=== PATIENT | female | born 1960 | race Caucasian/White ===

== ENCOUNTER 2017-12-30 08:37 | Emergency (ER) | payer MEDICARE, OTHER ==
[~2017-12-30] VITALS: Ht 167.6 cm; Wt 75.0 kg
[~2017-12-30 08:37] MED LIST: ASPI-516 CHEW; ATEN50TA PO; BUSP10TA PO; EPIP0.3I IM; FLUTI110I INH; LOVA20TA PO; MONT10TA4 PO; PANT40TA3 PO; VENTAER INH
[2017-12-30 08:38] VITALS: BP 154/73; PULSE 67; RESP 14; TEMP 97.9; O2SAT 100
[2017-12-30] MEDS ORDERED: SODIUM CHLOR 0.9% 1000 ML INJ 1,000 ML IV SCH (09:38)
--- NOTE | 2017-12-30 09:43 | PD ---
HPI Chief Complaint: Abdominal Pain Time Seen by Provider: 08:42 Travel History International Travel<30 days: No Contact w/Intl Traveler<30days: No Traveled to known affect area: No History of Present Illness HPI The patient is a 57-year-old female who presents to the emergency department for abdominal pain. The patient complains of right lower quadrant abdominal pain that radiates into the right inguinal region for 1 week's duration. The pain is intermittent, worse with sitting, but can be present at standing. She states that movements do not appear to exacerbate the pain. She does complain of mild nausea but denies any vomiting or diarrhea. Last bowel movement was yesterday. Previous abdominal surgeries include fixation of the vagina to the posterior wall and partial hysterectomy. She denies any fever, chills, sweats, dysuria, frequency, or urgency. She does have a history of gastritis. She denies any vaginal bleeding or vaginal discharge. Symptoms are moderate. PFSH Past Medical History Narrative Medical Gastritis, fibromyalgia, hypertension, hyperlipidemia Past Surgical History Narrative Surgical Vaginal surgery, partial hysterectomy Social History Tobacco Use: No Allergies-Medications (Allergen,Severity, Reaction): Coded Allergies: Sulfa (Sulfonamide Antibiotics) (Verified Allergy, Intermediate, itching, 12/30/17) egg (Verified Allergy, Unknown, 12/30/17) had an allergy test done Reported Meds & Prescriptions Reported Meds & Active Scripts Active Aspirin 81 Mg Chew 81 Mg CHEW DAILY Ventolin Hfa 18 GM Inh (Albuterol Sulfate) 90 Mcg/Act Aer 2 Puff INH Q4-6H PRN Flovent Hfa 12 GM Inh (Fluticasone Propionate) 110 Mcg/Act Inh 2 Puff INH BID Pantoprazole (Pantoprazole Sodium) 40 Mg Tab 40 Mg PO DAILY Montelukast (Montelukast Sodium) 10 Mg Tab 10 Mg PO DAILY Lovastatin 20 Mg Tab 20 Mg PO DAILY Buspirone (Buspirone HCl) 10 Mg Tab 10 Mg PO BID Atenolol 50 Mg Tab 50 Mg PO DAILY Reported Epipen 2-Gerald Inj (Epinephrine) Unknown Strength Pfpen Unknown Dose IM ONCE PRN Review of Systems Except as stated in HPI: all other systems reviewed are Neg General / Constitutional: No: Fever Cardiovascular: No: Chest Pain or Discomfort Respiratory: No: Shortness of Breath Gastrointestinal: Positive: Nausea, Abdominal Pain, Indigestion, No: Vomiting, Diarrhea, Constipation, Loss of Appetite Genitourinary: No: Dysuria, Discharge, Vaginal Bleeding Skin: No Rash Physical Exam Narrative GENERAL: Awake, alert, pleasant 57-year-old female who appears her stated age and is in no acute respiratory distress. SKIN: Focused skin assessment warm/dry. HEAD: Atraumatic. Normocephalic. EYES: Pupils equal and round. No scleral icterus. No injection or drainage. ENT: No nasal bleeding or discharge. Mucous membranes pink and moist. NECK: Trachea midline. No JVD. CARDIOVASCULAR: Regular rate and rhythm. No murmur appreciated. RESPIRATORY: No accessory muscle use. Clear to auscultation. Breath sounds equal bilaterally. GASTROINTESTINAL: The exam was performed in the presence of a female nurse. Negative McBurney's. Negative Maharaj's. Mild tenderness of the right inguinal canal, no obvious femoral hernia. Positive right femoral pulse. No significant lymphadenopathy noted. MUSCULOSKELETAL: No obvious deformities. No clubbing. No cyanosis. No edema. NEUROLOGICAL: Awake and alert. No obvious cranial nerve deficits. Motor grossly within normal limits. Normal speech. PSYCHIATRIC: Appropriate mood and affect; insight and judgment normal. Data Data Last Documented VS Vital Signs Date Time Temp Pulse Resp B/P (MAP) Pulse Ox O2 Delivery O2 Flow Rate FiO2 12/30/17 09:51 97 Room Air 12/30/17 08:38 97.9 67 14 Orders Orders Complete Blood Count With Diff (12/30/17:19) Comprehensive Metabolic Panel (12/30/17:19) Urinalysis - C+S If Indicated (12/30/17:19) Iv Access Insert/Monitor (12/30/17:19) Oxygen Administration (12/30/17:19) Oximetry (12/30/17:19) Lipase (12/30/17:19) Ct Abd/Pel W/O Iv Contrast (12/30/17:38) Ecg Monitoring (12/30/17:38) Morphine Inj (Morphine Inj) (12/30/17 09:45) Ondansetron Inj (Zofran Inj) (12/30/17 09:45) Sodium Chlor 0.9% 1000 Ml Inj (Ns 1000 M (12/30/17 09:38) Sodium Chloride 0.9% Flush (Ns Flush) (12/30/17 09:45) Ketorolac Inj (Toradol Inj) (12/30/17 09:45) Ed Discharge Order (12/30/17 11:01) Labs Laboratory Tests Test 12/30/17 09:50 White Blood Count 6.3 TH/MM3 Red Blood Count 4.17 MIL/MM3 Hemoglobin 12.5 GM/DL Hematocrit 36.7 % Mean Corpuscular Volume 88.1 FL Mean Corpuscular Hemoglobin 29.9 PG Mean Corpuscular Hemoglobin Concent 34.0 % Red Cell Distribution Width 13.4 % Platelet Count 249 TH/MM3 Mean Platelet Volume 8.2 FL Neutrophils (%) (Auto) 71.6 % Lymphocytes (%) (Auto) 18.2 % Monocytes (%) (Auto) 7.5 % Eosinophils (%) (Auto) 2.0 % Basophils (%) (Auto) 0.7 % Neutrophils # (Auto) 4.5 TH/MM3 Lymphocytes # (Auto) 1.1 TH/MM3 Monocytes # (Auto) 0.5 TH/MM3 Eosinophils # (Auto) 0.1 TH/MM3 Basophils # (Auto) 0.0 TH/MM3 CBC Comment DIFF FINAL Differential Comment Urine Color YELLOW Urine Turbidity HAZY Urine pH 8.0 Urine Specific [place] 1.009 Urine Protein NEG mg/dL Urine Glucose (UA) NEG mg/dL Urine Ketones NEG mg/dL Urine Occult Blood NEG Urine Nitrite NEG Urine Bilirubin NEG Urine Urobilinogen LESS THAN 2.0 MG/DL Urine Leukocyte Esterase TRACE Urine RBC 1 /hpf Urine WBC LESS THAN 1 /hpf Urine Squamous Epithelial Cells 9 /hpf Urine Bacteria FEW /hpf Urine Mucus FEW /lpf Microscopic Urinalysis Comment CULT NOT INDICATED Blood Urea Nitrogen 9 MG/DL Creatinine 0.71 MG/DL Random Glucose 92 MG/DL Total Protein 7.2 GM/DL Albumin 4.1 GM/DL Calcium Level 9.5 MG/DL Alkaline Phosphatase 88 U/L Aspartate Amino Transf (AST/SGOT) 17 U/L Alanine Aminotransferase (ALT/SGPT) 19 U/L Total Bilirubin 0.4 MG/DL Sodium Level 133 MEQ/L Potassium Level 4.2 MEQ/L Chloride Level 99 MEQ/L Carbon Dioxide Level 28.0 MEQ/L Anion Gap 6 MEQ/L Estimat Glomerular Filtration Rate 85 ML/MIN Lipase 153 U/L [facility] Medical Decision Making Medical Screen Exam Complete: Yes Emergency Medical Condition: Yes Medical Record Reviewed: Yes Interpretation(s) Laboratory Tests Test 12/30/17 09:50 White Blood Count 6.3 TH/MM3 Red Blood Count 4.17 MIL/MM3 Hemoglobin 12.5 GM/DL Hematocrit 36.7 % Mean Corpuscular Volume 88.1 FL Mean Corpuscular Hemoglobin 29.9 PG Mean Corpuscular Hemoglobin Concent 34.0 % Red Cell Distribution Width 13.4 % Platelet Count 249 TH/MM3 Mean Platelet Volume 8.2 FL Neutrophils (%) (Auto) 71.6 % Lymphocytes (%) (Auto) 18.2 % Monocytes (%) (Auto) 7.5 % Eosinophils (%) (Auto) 2.0 % Basophils (%) (Auto) 0.7 % Neutrophils # (Auto) 4.5 TH/MM3 Lymphocytes # (Auto) 1.1 TH/MM3 Monocytes # (Auto) 0.5 TH/MM3 Eosinophils # (Auto) 0.1 TH/MM3 Basophils # (Auto) 0.0 TH/MM3 CBC Comment DIFF FINAL Differential Comment Urine Color YELLOW Urine Turbidity HAZY Urine pH 8.0 Urine Specific [place] 1.009 Urine Protein NEG mg/dL Urine Glucose (UA) NEG mg/dL Urine Ketones NEG mg/dL Urine Occult Blood NEG Urine Nitrite NEG Urine Bilirubin NEG Urine Urobilinogen LESS THAN 2.0 MG/DL Urine Leukocyte Esterase TRACE Urine RBC 1 /hpf Urine WBC LESS THAN 1 /hpf Urine Squamous Epithelial Cells 9 /hpf Urine Bacteria FEW /hpf Urine Mucus FEW /lpf Microscopic Urinalysis Comment CULT NOT INDICATED Blood Urea Nitrogen 9 MG/DL Creatinine 0.71 MG/DL Random Glucose 92 MG/DL Total Protein 7.2 GM/DL Albumin 4.1 GM/DL Calcium Level 9.5 MG/DL Alkaline Phosphatase 88 U/L Aspartate Amino Transf (AST/SGOT) 17 U/L Alanine Aminotransferase (ALT/SGPT) 19 U/L Total Bilirubin 0.4 MG/DL Sodium Level 133 MEQ/L Potassium Level 4.2 MEQ/L Chloride Level 99 MEQ/L Carbon Dioxide Level 28.0 MEQ/L Anion Gap 6 MEQ/L Estimat Glomerular Filtration Rate 85 ML/MIN Lipase 153 U/L Last Impressions Abdomen/Pelvis CT 12/30/17 0938 Signed Impressions: Service Date/Time: Saturday, December 30, 2017 09:53 - CONCLUSION: No abnormality seen to account for the patient's right lower quadrant pain. No evidence of appendicitis. No evidence of inflammatory process within the abdomen or pelvis.. Ana Ross MD Differential Diagnosis Differential diagnosis includes femoral hernia, atypical appendicitis, nephrolithiasis, inguinal ligament strain, psoas abscess, diverticulitis. Narrative Course IV was established, labs are drawn and sent, and the patient was placed on cardiac telemetry monitoring and continuous pulse oximetry monitoring. The patient was administered morphine, Toradol, Zofran, and IV fluids. UA was sent to lab. CT of the abdomen and pelvis was performed. White count is normal. LFTs and lipase are unremarkable. UA is negative. CT the abdomen and pelvis is negative. Patient has reassuring vitals. Patient will be provided a copy of her labs at discharge. She will be placed on ibuprofen every 6 hours as needed, is advised to follow-up with her primary physician tomorrow. Return if symptoms worsen or progress. Diagnosis Primary Impression: Right groin pain Patient Instructions: General Instructions Additional Instructions: Please provide the patient a copy of her CT results and lab results at discharge. Follow-up with her primary physician tomorrow. Ibuprofen as needed. Return if symptoms worsen or progress. Med/Other Pt SpecificInfo: Prescription(s) given Scripts Ibuprofen (Ibuprofen) 600 Mg Tab 600 MG PO Q6H Y for Pain/Inflammation, #20 TAB 0 Refills Prov: Ortiz Soas MD 12/30/17 Disposition: DISCHARGE HOME Condition: Stable Ortiz Sosa MD Dec 30, 2017 09:43
[2017-12-30] MEDS ORDERED: MORPHINE SULFATE 4 MG/ML INJ IV PUSH ONE (09:45)
[2017-12-30] MEDS ORDERED: ONDANSETRON HCL 4 MG/2 ML VIAL IVP ONE (09:45)
[2017-12-30] MEDS ORDERED: SODIUM CHLORIDE 0.9% FLUSH 10 ML FLUSH IV FLUSH PRN (09:45)
[2017-12-30] MEDS ORDERED: KETOROLAC TROMETHAMINE 30 MG/ML (IVP) VIAL IVP ONE (09:45)
[2017-12-30 09:51] VITALS: O2SAT 97
[2017-12-30 10:18] LABS: AUTOMATED NEUTROPHIL # 4.5 TH/MM3 (1.8-7.7); BASOPHIL % 0.7 % (0.0-2.0); EOSINOPHIL # 0.1 TH/MM3 (0-0.4); HEMATOCRIT 36.7 % (35.0-46.0); HEMOGLOBIN 12.5 GM/DL (11.6-15.3); LYMPH % 18.2 % (9.0-44.0); LYMPHOCYTE # 1.1 TH/MM3 (1.0-4.8); MEAN CELL VOLUME 88.1 FL (80.0-100.0); MEAN CORPUSCULAR HEMOGLOBIN 29.9 PG (27.0-34.0); MEAN PLATELET VOLUME 8.2 FL (7.0-11.0); MONO % 7.5 % (0.0-8.0); MONOCYTE # 0.5 TH/MM3 (0-0.9); NEUT % 71.6 % (16.0-70.0); PLATELET COUNT 249 TH/MM3 (150-450); RED BLOOD COUNT 4.17 MIL/MM3 (4.00-5.30); RED CELL DISTRIBUTION WIDTH 13.4 % (11.6-17.2); WHITE BLOOD COUNT 6.3 TH/MM3 (4.0-11.0)
--- NOTE | 2017-12-30 10:21 | RADRPT ---
EXAM DATE/TIME: 12/30/2017 09:53 [facility] COMPARISON: No previous studies available for comparison. INDICATIONS : Right lower abdomen pain for one week. ORAL CONTRAST: No oral contrast ingested. RADIATION DOSE: 9.29 CTDIvol (mGy) MEDICAL HISTORY : None SURGICAL HISTORY : colectomy ENCOUNTER: Initial ACUITY: 1 week PAIN SCALE: 6/10 LOCATION: Right lower quadrant TECHNIQUE: Volumetric scanning of the abdomen and pelvis was performed. Using automated exposure control and ad justment of the mA and/or kV according to patient size, radiation dose was kept as low as reasonably achievable to obtain optimal diagnostic quality images. DICOM format image data is available electro nically for review and comparison. FINDINGS: LOWER LUNGS: The visualized lower lungs are clear. LIVER: Homogeneous density without lesion. There is no dilation of the biliary tree. No calcified gallston es. SPLEEN: Normal size without lesion. PANCREAS: Within normal limits. KIDNEYS: Normal in size and shape. There is no mass, stone, or hydronephrosis. ADRENAL GLANDS: Within normal limits. VASCULAR: Scattered atherosclerosis. No evidence of aneurysm. BOWEL/MESENTERY: The stomach, small bowel, and colon demonstrate no acute abnormality. There is no free intraperitone al air or fluid. Scattered diverticula identified in the sigmoid colon. No evidence of adjacent infla mmatory change or wall thickening. ABDOMINAL WALL: Within normal limits. RETROPERITONEUM: There is no lymphadenopathy. BLADDER: No wall thickening or mass. REPRODUCTIVE: The ovaries are not visualized. The uterus appears to be surgically absent. INGUINAL: There is no lymphadenopathy or hernia. MUSCULOSKELETAL: Degenerative changes within the lower lumbar spine. CONCLUSION: No abnormality seen to account for the patient's right lower quadrant pain. No evidence of appendicit is. No evidence of inflammatory process within the abdomen or pelvis.. Ana Ross MD on December 30, 2017 at 10:14 Board Certified Radiologist. This report was verified electronically.
[2017-12-30 10:26] LABS: BACTERIA, URINE FEW /hpf; BILIRUBIN, URINE NEG (NEG); BLOOD, URINE NEG (NEG); GLUCOSE,URINE NEG (NEG); KETONE, URINE NEG (NEG); MUCUS URINE FEW /lpf (OCC); NITRITE,URINE NEG (NEG); SQUAMOUS EPITHELIAL CELL URINE 9 /hpf (0-5); URINE COLOR YELLOW (YELLW/STRAW); URINE LEUKOCYTE ESTERASE TRACE (NEG)
[2017-12-30 10:38] LABS: ALBUMIN 4.1 GM/DL (3.4-5.0); AST (GOT) 17 U/L (15-37); BLOOD UREA NITROGEN 9 MG/DL (7-18); CALCIUM 9.5 MG/DL (8.5-10.1); CHLORIDE 99 MEQ/L (98-107); CREATININE 0.71 MG/DL (0.50-1.00); GLOMERULAR FILTRATION RATE 85 ML/MIN (>89); GLUCOSE,RANDOM 92 MG/DL (74-106); SODIUM (NA) 133 MEQ/L (136-145)
[2017-12-30 10:39] LABS: ALT (GPT) 19 U/L (10-53)
[2017-12-30 10:41] LABS: ALKALINE PHOSPHATASE 88 U/L (45-117); TOTAL BILIRUBIN ADULT 0.4 MG/DL (0.2-1.0); TOTAL PROTEIN 7.2 GM/DL (6.4-8.2)
[2017-12-30] MEDS ORDERED: IBUP-232 PO (11:04)
[2017-12-30 11:20] VITALS: BP 144/76
== END 2017-12-30 11:20 | disposition home or self-care (01) ==
LOC: NEPC 08:37
DX: R10.31 Right lower quadrant pain (principal); R11.0 Nausea; Z79.899 Other long term (current) drug therapy; Z79.82 Long term (current) use of aspirin; Z88.2 Allergy status to sulfonamides
CPT/HCPCS: 74176; 80053; 81001; 83690; 85025; 96361; 96374; 96375; 99284; J1885; J2405; J7030